=== PATIENT | female | born 1950 | race Caucasian/White ===

== ENCOUNTER 2016-09-03 12:09 | Day surgery (SDC) | payer MEDICARE, OTHER ==
--- NOTE | ~2016-09-03 | EGD ---
EGD REPORT [facility] [address] [place] [address] NAME: EDITH CA : [birth year] STATUS : PRE [facility] PAT#: [id number] AGE: 66 ADM/REG DATE : MR#: [id number] REPORT SERV DATE: 09/03/16 DICTATED BY: DWAINE CALHOUN DATE: 09/03/16 REPORT STATUS : Draft TRANSCRIBED BY: [employer] DATE: 09/03/16 [facility] Patient Name: Edith Ca Date of : 1950 Attending MD: DWAINE CALHOUN MD Procedure Date No Time: 09/03/2016 Procedure: Upper GI endoscopy Indications: Follow-up of gastric polyps, (Gastric adenoma) Referring MD: ANDREA CALDWELL Medicines: See the Anesthesia note for documentation of the administered medications Complications: No immediate complications. Procedure: Pre-Anesthesia Assessment: - ASA Grade Assessment: III - A patient with severe systemic disease. After obtaining informed consent, the endoscope was passed under direct vision. Throughout the procedure, the patient's blood pressure, pulse, and oxygen saturations were monitored continuously. The GIF H190 [id number] was introduced through the mouth, and advanced to the second part of duodenum. The upper GI endoscopy was accomplished without difficulty. The patient tolerated the procedure well. Findings: The examined duodenum was normal. Mild inflammation was found in the gastric antrum. A small hiatus hernia was present. Lots of polyps in stomach, none appearing adenomatous. Approx 10 in fundus and about 25-30 in body Six 10 mm sessile polyps were found in the gastric body. The polyp was removed with a hot snare. Resection and retrieval were complete. 20 small sessile polyps were found in the gastric body. Biopsies were taken with a cold forceps for histology. Impression: - Normal examined duodenum. - Gastritis. - Hiatus hernia. - Lots of polyps in stomach, none appearing adenomatous. Approx 10 in fundus and about 25-30 in body - Six gastric polyps. Resected and retrieved. - 20 gastric polyps. Biopsied. Recommendation: - Patient has a contact number available for emergencies. The signs and symptoms of potential delayed EGD REPORT [address] [address] NAME: EDITH CA : [birth year] STATUS : PRE [facility] PAT#: [id number] AGE: 66 ADM/REG DATE : MR#: [id number] REPORT SERV DATE: 09/03/16 DICTATED BY: DWAINE CALHOUN DATE: 09/03/16 REPORT STATUS : Draft TRANSCRIBED BY: [employer] DATE: 09/03/16 complications were discussed with the patient. Return to normal activities tomorrow. Written discharge instructions were provided to the patient. - Regular diet. - Continue present medications. - FOR YOUR BIOPSY RESULTS: Please go to [email or web address] and register to receive your results via the portal. Your biopsy results will be posted there in about 7 to 10 days. IF you do not see result in 10 days, call office. - Return to my office in 6 weeks. - Repeat EGD in 3 months Procedure Code(s): --- Professional --- 99307, Esophagogastroduodenoscopy, flexible, transoral; with removal of tumor(s), polyp(s), or other lesion(s) by snare technique 37853, 59, Esophagogastroduodenoscopy, flexible, transoral; with biopsy, single or multiple Diagnosis Code(s): --- Professional --- K29.70, Gastritis, unspecified, without bleeding K44.9, Diaphragmatic hernia without obstruction or gangrene K31.7, Polyp of stomach and duodenum CPT copyright 2013 [employer]. All rights reserved. The codes documented in this report are preliminary and upon seater grinder review may be revised to meet current compliance requirements. Dwaine Calhoun MD DWAINE CALHOUN MD 09/03/2016 2:15 PM This report has been signed electronically. Number of Addenda: 0 Note Initiated On: 09/03/2016 1:42 PM Scope Withdrawal Time 0 hours 0 minutes 0 seconds [id number] [id number]
--- NOTE | ~2016-09-03 | EGD ---
EGD REPORT [facility] [address] [address] NAME: EDITH CA : [birth year] STATUS : PRE [facility] [place] PAT#: [id number] AGE: 66 ADM/REG DATE : MR#: [id number] REPORT SERV DATE: 09/03/16 DICTATED BY: DWAINE CALHOUN DATE: 09/03/16 REPORT STATUS : Draft TRANSCRIBED BY: [employer] DATE: 09/03/16 [facility] Patient Name: Edith Ca Date of : 1950 Attending MD: DWAINE CALHOUN MD Procedure Date No Time: 09/03/2016 Procedure: Upper GI endoscopy Indications: Follow-up of gastric polyps, (Gastric adenoma) Referring MD: ANDREA CALDWELL Medicines: See the Anesthesia note for documentation of the administered medications Complications: No immediate complications. Procedure: Pre-Anesthesia Assessment: - ASA Grade Assessment: III - A patient with severe systemic disease. After obtaining informed consent, the endoscope was passed under direct vision. Throughout the procedure, the patient's blood pressure, pulse, and oxygen saturations were monitored continuously. The GIF H190 [id number] was introduced through the mouth, and advanced to the second part of duodenum. The upper GI endoscopy was accomplished without difficulty. The patient tolerated the procedure well. Findings: The examined duodenum was normal. Mild inflammation was found in the gastric antrum. A small hiatus hernia was present. Lots of polyps in stomach, none appearing adenomatous. Approx 10 in fundus and about 25-30 in body Six 10 mm sessile polyps were found in the gastric body. The polyp was removed with a hot snare. Resection and retrieval were complete. 20 small sessile polyps were found in the gastric body. Biopsies were taken with a cold forceps for histology. Impression: - Normal examined duodenum. - Gastritis. - Hiatus hernia. - Lots of polyps in stomach, none appearing adenomatous. Approx 10 in fundus and about 25-30 in body - Six gastric polyps. Resected and retrieved. - 20 gastric polyps. Biopsied. Recommendation: - Patient has a contact number available for emergencies. The signs and symptoms of potential delayed EGD REPORT [address] [address] NAME: EDITH CA : [birth year] STATUS : PRE [facility] [place] PAT#: [id number] AGE: 66 ADM/REG DATE : MR#: [id number] REPORT SERV DATE: 09/03/16 DICTATED BY: DWAINE CALHOUN DATE: 09/03/16 REPORT STATUS : Draft TRANSCRIBED BY: [employer] DATE: 09/03/16 complications were discussed with the patient. Return to normal activities tomorrow. Written discharge instructions were provided to the patient. - Regular diet. - Continue present medications. - FOR YOUR BIOPSY RESULTS: Please go to [email or web address] and register to receive your results via the portal. Your biopsy results will be posted there in about 7 to 10 days. IF you do not see result in 10 days, call office. - Return to my office in 6 weeks. - Repeat EGD in 3 months Procedure Code(s): --- Professional --- 42310, Esophagogastroduodenoscopy, flexible, transoral; with removal of tumor(s), polyp(s), or other lesion(s) by snare technique 32222, 59, Esophagogastroduodenoscopy, flexible, transoral; with biopsy, single or multiple Diagnosis Code(s): --- Professional --- K29.70, Gastritis, unspecified, without bleeding K44.9, Diaphragmatic hernia without obstruction or gangrene K31.7, Polyp of stomach and duodenum CPT copyright 2013 [employer]. All rights reserved. The codes documented in this report are preliminary and upon yoga teacher review may be revised to meet current compliance requirements. Dwaine Calhoun MD DWAINE CALHOUN MD 09/03/2016 2:15 PM This report has been signed electronically. Number of Addenda: 0 Note Initiated On: 09/03/2016 1:42 PM Scope Withdrawal Time 0 hours 0 minutes 0 seconds [id number] [id number]
[~2016-09-03 12:09] MED LIST: ADVAIR115P INH; ADVAIR230P INH; ASAB PO; CALTRA600D PO; CARVEDILOL PO; CAT1 PO; COREG6 PO; CYTO25 PO; DAPSONE EX; DEPO-ESTRAD5 MG/1 ML IM; DEPO-ESTRADI5 MG/ML IM; FLEX PO; GENTEAL 15 ML O15 ML OPH; HYDROCHLOROT12.5 MG PO; IRON325 MG PO; L20 PO; MIRALAX POWDER1 PKT PO; NASACORTAQ NAS; PROAIR HFA INH; PROTONIX PO; REFRESH OPH SO0.3 ML OPH; SINGULAIR1 PO; SODBICAR10 PO; SYSTANE OP; V2 PO; VITAMIN B-121000 MC1 SL; VITAMIN B-1500 MG PO; VITAMIN D31000 UNIT PO; VITAMIN D400 UNI1 PO; Z100 PO; ZOFRAN4 PO
[2017-01-04] MEDS ORDERED: ACIPHEX PO (14:14)
== END 2016-09-03 23:59 | disposition home or self-care (01) ==
LOC: DMU 12:09
PROVIDERS: Internal Medicine Gastroenterology
PROC: 0DB68ZZ Excision of Stomach, Via Natural or Artificial Opening Endoscopic (ICD-10-PCS; principal; 2016-09-03 14:30)
PROC: 0DB68ZX Excision of Stomach, Via Natural or Artificial Opening Endoscopic, Diagnostic (ICD-10-PCS; 2016-09-03 14:30)
DX: K29.70 Gastritis, unspecified, without bleeding (principal); K44.9 Diaphragmatic hernia without obstruction or gangrene; J45.909 Unspecified asthma, uncomplicated; N18.9 Chronic kidney disease, unspecified; I12.9 Hypertensive chronic kidney disease with stage 1 through stage 4 chronic kidney disease, or unspecified chronic kidney disease
CPT/HCPCS: 88305